=== PATIENT | female | born 1985 | race Caucasian/White ===

== ENCOUNTER 2018-06-21 22:29 | Inpatient (IN) | payer OTHER ==
[~2018-06-21] VITALS: Ht 175.3 cm; Wt 108.4 kg
[2018-06-22 00:10] LABS: ABSOLUTE BASOPHIL COUNT 0 /CUMM (0.0-0.2); ABSOLUTE EOSINOPHIL COUNT 0.1 /CUMM (0.0-0.7); ABSOLUTE GRANULOCYTE CT 6.9 /CUMM (1.4-6.5); ABSOLUTE LYMPH COUNT 1.8 /CUMM (1.2-3.4); ABSOLUTE MONOCYTE COUNT 0.7 /CUMM (0.10-0.60); BASOPHIL % 0.4 % (0.0-2.0); EOSINOPHIL % 0.6 % (0-5); GRANULOCYTE % 72.7 % (42.2-75.2); HEMATOCRIT 33.7 % (37-47); MEAN CORPUSCULAR HGB CONC 34.7 G/DL (33.0-37.0); MEAN CORPUSCULAR VOLUME 95.2 FL (81.0-99.0); MEAN PLATELET VOLUME 9.5 FL (7.4-10.4); PLATELET COUNT 250 /CUMM (130-400); RBC DISTRIBUTION WIDTH 12.7 % (11.5-14.5); RED BLOOD CELL CT 3.54 /CUMM (4.20-5.40); WHITE BLOOD CELL COUNT 9.4 /CUMM (4.8-10.8)
--- NOTE | 2018-06-22 08:39 | PN- OBGYN ---
Surgical Brief Attending Note Brief Attending Note: PT COMFORTABLE W/ EPIDURAL PROLONGED DECEL 2MIN NOTED ON FHT, SPONT RETURN TO BASELINE CTX Q 3 SVE FD / -1 CONT CURRENT MGMT ALLOW DESCENT OF VTX BEFORE PUSHING
--- NOTE | 2018-06-22 10:36 | PN- OBGYN ---
Surgical Brief Attending Note Brief Attending Note: pt comfortable t 99.4 fht 160s min - mod variability +acc occ mild scott dec toco q 2-3 sve fd / 0 cont current mgmt
[2018-06-22 13:56] VITALS: BP 132/77
--- NOTE | 2018-06-22 14:25 | Labor & Delivery Summary ---
Delivery Summary Vaginal Delivery: Vaginal: spontaneous Episiotomy/Lacerations: Type: 2nd deg lac Repair: 3-0 holger Anesthesia: epidural and local Placenta: Placenta: spontanteous, normal, 3 vessel, nuchal cord (x_) Anesthesia: block, local Apgars - 1 Min: 9 Apgars - 5 Min: 9 Additional Comments: Pt FD / +2 and pushing w/ epidural. Controlled of live male at 144pm, apg 9 /9, wt 7#15. Head del from SYLVIA. Body quickly delivered through loose nuchal cord. Baby to mom's chest. Spont cry. Mouth and nose bulb suctioned. Cord clamped and cut. 3vc plac del spont intact. Fundus contracted w/ massage and pitocin. 2nd deg lac repaired usual fashion 3-0 holger. Good hemostasis. Pt adriana well. EBL 300cc.
[2018-06-23 09:03] LABS: ABSOLUTE BASOPHIL COUNT 0 /CUMM (0.0-0.2); ABSOLUTE EOSINOPHIL COUNT 0 /CUMM (0.0-0.7); ABSOLUTE GRANULOCYTE CT 10.9 /CUMM (1.4-6.5); ABSOLUTE LYMPH COUNT 1.5 /CUMM (1.2-3.4); ABSOLUTE MONOCYTE COUNT 0.6 /CUMM (0.10-0.60); BASOPHIL % 0.3 % (0.0-2.0); EOSINOPHIL % 0.2 % (0-5); GRANULOCYTE % 83.7 % (42.2-75.2); MEAN CORPUSCULAR HGB 33.5 PG (27.0-31.0); MEAN CORPUSCULAR HGB CONC 34.9 G/DL (33.0-37.0); MEAN CORPUSCULAR VOLUME 95.9 FL (81.0-99.0); MEAN PLATELET VOLUME 9.5 FL (7.4-10.4); PLATELET COUNT 224 /CUMM (130-400); RBC DISTRIBUTION WIDTH 13.2 % (11.5-14.5); RED BLOOD CELL CT 3.23 /CUMM (4.20-5.40); WHITE BLOOD CELL COUNT 13.1 /CUMM (4.8-10.8)
--- NOTE | 2018-06-23 09:44 | PN- OBGYN ---
Surgical Brief Attending Note Brief Attending Note: PPD 1 Patient ambulating in room, happy, comfortable. Denies pain Mild lochia rubra. +void. Tolerating POs. afebrile, VS and UOP normal Mouth moist, pink Breasts - nonengorged Abd - soft, NT Fundus - firm, NT Perineum - intact, dry Extr - benign A: stable P: routine care. Requests circumcision for her son. Risks, benefits, alternatives discussed, questions answered, and informed consent obtained. Per nursing baby has still unstable sugar and temp so circ must be delayed until baby is stabilized.
[2018-06-24] MEDS ORDERED: IBUPROFEN800 M1 PO (08:58)
--- NOTE | 2018-06-24 09:11 | PN- OBGYN ---
Surgical Brief Attending Note Brief Attending Note: PPD#2 pt is ambulating, no complaints, tolertae diet, void without difficulties. PE: VSS CV RRR Lungs CTA B/L Abdomen: soft, nontender, uterus firm, fundus below umbilicus, lochia mild Ext: DCT (-) A/P: 33yo, s/p , PPD #2 1. encourage ambulation and 2. pain management s needed 3. will d/c home, f/u in office in 2 wks and 6 wks. discharge instructions given.
== END 2018-06-24 11:30 | DRG 775 ==
LOC: CBCO 22:29 → GNO 23:20
PROVIDERS: Obstetrics & Gynecology
PROC: 0KQM0ZZ Repair Perineum Muscle, Open Approach (ICD-10-PCS; principal; 2018-06-22)
PROC: 10E0XZZ Delivery of Products of Conception, External Approach (ICD-10-PCS; 2018-06-22)
DX: O76 Abnormality in fetal heart rate and rhythm complicating labor and delivery (principal); Z3A.40 40 weeks gestation of pregnancy; Z37.0 Single live birth; O70.1 Second degree perineal laceration during delivery
CPT/HCPCS: GNOP; GNOS; 36415; 81003; 84112; 87086; J7120